=== PATIENT | female | born 1970 | race African-American/Black ===

== ENCOUNTER 2023-05-25 11:10 | Day surgery (SDC) | payer OTHER ==
[~2023-05-25] VITALS: Ht 160 cm; Wt 103.0 kg
[~2023-05-25 11:10] MED LIST: SODIUM PHOSPHATE 118 ML ENEM RC PRN
[2023-05-25] MEDS ORDERED: fentaNYL citrate 0.05 MG/ML VIAL ONE (12:23)
[2023-05-25] MEDS ORDERED: LIDOCAINE 2% 100 MG/5 ML UJET TP ONE ×2 (12:24→13:15)
[2023-05-25] MEDS ORDERED: fentaNYL citrate 0.05 MG/ML VIAL IVP ONE (13:15)
== END 2023-05-25 13:46 | disposition home or self-care (01) ==
LOC: MDS 11:10 → MMU 11:14 → MDS 13:46
PROVIDERS: ATTEND Internal Medicine Gastroenterology
DX: K52.9 Noninfective gastroenteritis and colitis, unspecified (principal); K57.30 Diverticulosis of large intestine without perforation or abscess without bleeding; K63.5 Polyp of colon; K21.9 Gastro-esophageal reflux disease without esophagitis; E03.9 Hypothyroidism, unspecified; Z90.710 Acquired absence of both cervix and uterus; Z90.49 Acquired absence of other specified parts of digestive tract; Z79.899 Other long term (current) drug therapy
CPT/HCPCS: 45380; 45385; J3010